=== PATIENT | female | born 1965 | race Caucasian/White ===

== ENCOUNTER 2021-07-05 12:46 | Outpatient (RCR) | payer BC ==
[2021-07-02 12:51] LABS: BILIRUBIN,URINE NEGATIVE (NEGATIVE); CLARITY,URINE CLEAR; COLOR,URINE YELLOW; GLUCOSE, URINE (UA) NEGATIVE (NEGATIVE); KETONES,URINE NEGATIVE (NEGATIVE); LEUKOCYTE ESTERASE ,URINE NEGATIVE (NEGATIVE); NITRITE,URINE NEGATIVE (NEGATIVE); PROTEIN,URINE NEGATIVE (NEGATIVE)
[2021-07-02 13:00] LABS: BACTERIA,URINE NEGATIVE /HPF; RBC,URINE RARE /HPF; SQUAMOUS EPITHELIAL CELL,UR RARE /HPF
[~2021-07-05] VITALS: Ht 165.1 cm; Wt 114.3 kg
[~2021-07-05 12:46] MED LIST: FERRIC CARBOXYMALTOSE INJ 750 MG in NS (IVPB) 250 ML IV SCH
[2021-07-11] MEDS ORDERED: LEVO25TA80 PO (10:05)
[2021-07-11] MEDS ORDERED: MAGN400C PO (10:05)
[2021-07-11] MEDS ORDERED: MULT-1136 PO (10:05)
[2021-07-11] MEDS ORDERED: PANT40TA52 PO (10:05)
[2021-07-11] MEDS ORDERED: ESCI-2 PO (10:05)
== END 2021-07-10 | disposition home or self-care (01) ==
LOC: ONC 12:46
PROVIDERS: ATTEND Internal Medicine
DX: D50.9 Iron deficiency anemia, unspecified (principal); Z85.01 Personal history of malignant neoplasm of esophagus
CPT/HCPCS: 81000; G0463; 36415; 96365; 99214

== ENCOUNTER 2021-07-11 09:28 | Day surgery (SDC) | payer BC ==
[~2021-07-11] VITALS: Ht 165.1 cm; Wt 113.4 kg
[2021-07-11] MEDS ORDERED: LACTATED RINGERS 1,000 ML IV STA (09:43)
[2021-07-11 09:45] VITALS: BP 156/93
[2021-07-11] MEDS ORDERED: LIDOCAINE JELLY 2% 6 ML SYRINGE MM PRN (09:45)
[2021-07-11] MEDS ORDERED: HURRICAINE EXT TUBE (BENZOCAINE) XX PRN (09:45)
[2021-07-11] MEDS ORDERED: MULT-1136 PO (10:05)
[2021-07-11] MEDS ORDERED: LEVO25TA80 PO (10:05)
[2021-07-11] MEDS ORDERED: MAGN400C PO (10:05)
[2021-07-11] MEDS ORDERED: ESCI-2 PO (10:05)
[2021-07-11] MEDS ORDERED: PANT40TA52 PO (10:05)
--- NOTE | 2021-07-11 11:03 | Progress Note-Pre Operative ---
Pre-Operative Progress Note H&P Reviewed The H&P was reviewed, patient examined and no changes noted. Date Seen by Provider: Jul 11, 2021 Time Seen by Provider: 10:30 Date H&P Reviewed: Jul 11, 2021 Time H&P Reviewed: 10:30 Pre-Operative Diagnosis: hx type 2 prepyloric ulcer JANINA RAMIREZ MD Jul 11, 2021 11:03
--- NOTE | 2021-07-11 11:05 | Discharge Inst-Surgical ---
D/C Lap Instructions-ASHLEY Follow Up Activity as tolerated High Fiber Diet 25g or more per day Avoid Alcohol, Caffeine, Spicy [place] and Acid foods. Drink 64 fluid oz or more of fluids per day. Symptoms to Report: Fever over 101 degree F, Nausea/Vomiting If any problems/questions: Contact your physician or go to Emergency Room JANINA RAMIREZ MD Jul 11, 2021 11:05
[2021-07-11] MEDS ORDERED: ONDANSETRON 4 MG/2 ML (SDV) Z0FRAN IVP PRN (11:15)
[2021-07-11] MEDS ORDERED: ONDANSETRON 4 MG (ZOFRAN) ORAL DISSOLVE TAB PO PRN (11:15)
[2021-07-11] MEDS ORDERED: MIDAZOLAM 2 MG/2 ML (VERSED) VIAL ONE (11:57)
[2021-07-11] MEDS ORDERED: proPOfol 200 MG/20 ML (DIPRIVAN) VIAL IV ONE ×2 (11:58→12:14)
[2021-07-11 12:34] VITALS: BP 145/65
[2021-07-11 12:40] VITALS: BP 129/63
--- NOTE | 2021-07-11 12:49 | Anesthesia-General Post-Op ---
MAC Patient Condition Mental Status/LOC: Same as Preop Cardiovascular: Satisfactory Nausea/Vomiting: Absent Respiratory: Satisfactory Pain: Controlled Complications: Absent Post Op Complications Complications None Follow Up Care/Instructions Patient Instructions None needed. Anesthesiology Discharge Order Discharge Order Patient is doing well, no complaints, stable vital signs, no apparent adverse anesthesia problems. No complications reported per nursing. NILESH TUTTLE DO Jul 11, 2021 12:49
[2021-07-11 12:58] VITALS: BP 129/63
--- NOTE | 2021-07-11 14:13 | Progress Note-Post Operative ---
Post-Operative Progess Note Surgeon (s)/Contracting Manager (s) Surgeon JANINA RAMIREZ MD Contracting Manager: none Pre-Operative Diagnosis hx type 2 prepyloric ulcer Post-Operative Diagnosis reflux esophagitis(grade B), small HH(1.5cm), mild gastitis, healed ulcer. Procedure & Operative Findings Date of Procedure 07/11/21 Procedure Performed/Findings EGD with bx. Anesthesia Type mac Estimated Blood Loss Estimated blood loss (mL): minimal Specimens/Packing Specimens Removed ge jxn, antrum JANINA RAMIREZ MD Jul 11, 2021 14:13
--- NOTE | 2021-07-11 21:22 | OPERATIVE REPORT ---
DATE OF SERVICE: 07/11/2021 ATTENDING PRIMARY CARE PHYSICIAN: Dr. Hernandez. PREOPERATIVE DIAGNOSIS: History of type 3 prepyloric ulcer, 3 mm in size with an overlying fibrin clot, no active bleed. POSTOPERATIVE DIAGNOSES: Reflux esophagitis grade B, small hiatal hernia 1.5 cm in size, mild to moderate gastritis. No ulcer. PROCEDURE: EGD with biopsy. SURGEON: Janina Ramirez MD ANESTHESIA: Monitored anesthesia care. ESTIMATED BLOOD LOSS: Minimal. FINDINGS: Reflux esophagitis grade B, small hiatal hernia 1.5 cm in size, mild to moderate gastritis. No ulcer. DISPOSITION: The patient tolerated the procedure well. INDICATIONS: The patient is a 56-year-old female known to us. She was seen in 09/2020 for anemia as well as history of gastroesophageal reflux disease and was found to be anemic with a hemoglobin of 5.4 and did undergo blood transfusion. She then underwent an EGD and colonoscopy and was found to have a small prepyloric ulcer, 3 mm in size with an overlying fibrin clot, no active bleeding. She has had repeat lab work and her hemoglobin has stabilized around the 9 region. She does not report any red blood per rectum nor any dark tarry stools. She is here for followup for the prepyloric ulcer. DESCRIPTION OF PROCEDURE: The patient was brought to the endoscopy suite, laid in the left lateral decubitus position. After adequate IV pain and sedative medications and monitored anesthesia care, the mouthpiece was applied. The endoscope was placed in the mouth, visualizing the pharynx and hypopharyngeal region. Vocal cords, epiglottis and vallecula identified and appeared to be normal. The endoscope was then gently abated esophageal opening and esophagus insufflated. The endoscope was then advanced through the first, second and third portion of esophagus at the level of the GE junction. A reflux esophagitis, [place] grade B identified. No ulcers or strictures. A biopsy was taken with forceps with visualization of good hemostasis. The endoscope was advanced in the stomach and endoscope retroflexed, visualizing a small hiatal hernia approximately 1.5 cm in size. There was a mild to moderate gastritis. There were no ulcerations identified in the antrum or pylorus. Duodenum, first and second portion of the duodenum appeared normal. The endoscope was then slowly withdrawn while taking a second look and suctioning of residual air with no additional findings. The patient tolerated the procedure well. We will recommend the necessary lifestyle and dietary accommodation including small and more frequent meals, avoiding to eating at night as well as head elevation while lying supine. We will also recommend avoidance of caffeinated beverages, spicy, greasy and acidic foods and continuation of her Nexium daily. Job ID: [id number] DocumentID: [id number] Dictated Date: 07/11/2021 12:38:08 Anesthesia Assistant Date: 07/11/2021 21:22:10 Dictated By: JANINA RAMIREZ MD
== END 2021-07-11 12:57 | disposition home or self-care (01) ==
LOC: ENDO 09:28
PROVIDERS: ATTEND Surgery
DX: K21.00 Gastro-esophageal reflux disease with esophagitis, without bleeding (principal); K29.70 Gastritis, unspecified, without bleeding; K31.A0 Gastric intestinal metaplasia, unspecified; K44.9 Diaphragmatic hernia without obstruction or gangrene; D50.9 Iron deficiency anemia, unspecified; Z87.11 Personal history of peptic ulcer disease; Z79.899 Other long term (current) drug therapy

== ENCOUNTER 2021-07-12 13:03 | Outpatient (RCR) | payer BC ==
[~2021-07-12 13:03] MED LIST changes: +ESCI-2 PO; +LEVO25TA80 PO; +MAGN400C PO; +MULT-1136 PO; +PANT40TA52 PO
== END 2021-08-09 | disposition home or self-care (01) ==
LOC: ONC 13:03
PROVIDERS: ATTEND Internal Medicine
DX: D50.9 Iron deficiency anemia, unspecified (principal); Z85.01 Personal history of malignant neoplasm of esophagus
CPT/HCPCS: 36415; 96365

== ENCOUNTER 2021-11-10 20:16 | Outpatient (CLI) | payer BC ==
[~2021-11-10 20:16] MED LIST changes: -FERRIC CARBOXYMALTOSE INJ 750 MG in NS (IVPB) 250 ML IV SCH
== END 2021-11-11 06:35 | disposition home or self-care (01) ==
LOC: SLEEP 20:16
PROVIDERS: ATTEND Otolaryngology Otolaryngology/Facial Plastic Surgery
DX: G47.33 Obstructive sleep apnea (adult) (pediatric) (principal); G47.10 Hypersomnia, unspecified
CPT/HCPCS: 95811